=== PATIENT | male | born 2000 ===

== ENCOUNTER 2019-07-14 14:56 | Emergency (ER) | payer SELFPAY ==
--- NOTE | 2019-07-14 15:25 | EDM.PDOC ---
ED HPI GENERAL MEDICAL PROBLEM - General Chief Complaint: Lower Extremity Injury/Pain Stated Complaint: SCRAPE ON KNEE Time Seen by Provider: 07/14/19 15:25 Source of Information: Reports: Patient History Limitations: Reports: No Limitations - History of Present Illness INITIAL COMMENTS - FREE TEXT/NARRATIVE: HISTORY AND PHYSICAL: History of present illness: Patient is a 19-year-old male who presents to the emergency room with complaints of abrasion to bilateral knees. He states yesterday he had slipped and fallen onto his knees and had noticed superficial abrasions to bilateral knee caps. He is in the emergency room requesting that they be "cleaned". He denies hitting his head or having any loss of consciousness. Denies any other extremity involvement. Offers no systemic complaints. Tdap in 2018. Review of systems: As per history of present illness and below otherwise all systems reviewed and negative. Past medical history: As per history of present illness and as reviewed below otherwise noncontributory. Surgical history: As per history of present illness and as reviewed below otherwise noncontributory. Social history: See social history for further information Family history: As per history of present illness and as reviewed below otherwise noncontributory. Physical exam: General: Well-developed and well-nourished 19-year-old male. Alert and oriented. Nontoxic appearing and in no acute distress. HEENT: Atraumatic, normocephalic, pupils equal and reactive bilaterally, negative for conjunctival pallor or scleral icterus, mucous membranes moist, trachea midline. No drooling or trismus noted. No meningeal signs. No hot potato voice noted. Lungs: Clear to auscultation, breath sounds equal bilaterally, chest nontender. Heart: S1S2, regular rate and rhythm without overt murmur Abdomen: Soft, nondistended, nontender. Skin: Superficial abrasion to bilateral knees. Otherwise skin is intact, warm, dry. No lesions or rashes noted. Extremities: Ambulatory, moves all extremities per self without difficulty or deficits, negative for cords or calf pain. Neurovascular unremarkable. Neuro: Awake, alert, oriented. Cranial nerves II through XII unremarkable. Cerebellum unremarkable. Motor and sensory unremarkable throughout. Exam nonfocal. Notes: Patient reports his tetanus has been updated within the last year. Declines the need for x-rays at this time. Wound care with bacitracin provided. Supportive care measures were reviewed and discussed. Voices understanding and is agreeable to plan of care. Denies any further questions or concerns at this time. Diagnostics: Declined Therapeutics: Bacitracin Prescription: None Impression: Abrasion Plan: 1. Rest, ice, elevate the affected extremity. Please keep the abrasion clean and dry. You may apply bacitracin 2-3 times daily over the next 24 hours. 2. Tylenol and/or Ibuprofen as needed for pain management. 3. Follow up with the Orthopedic provider as we discussed. Return to the ED as needed and as discussed. Definitive disposition and diagnosis as appropriate pending reevaluation and review of above. L knee Pain Score (Numeric/FACES): 10 - Related Data Allergies Allergy/AdvReac Type Severity Reaction Status Date / Time No Known Allergies Allergy Verified 07/14/19 15:26 Home Meds: Home Meds Hepatitis B Medicine 07/14/19 [History] Review of Systems - Review of Systems Review Of Systems: ROS reveals no pertinent complaints other than HPI. ED EXAM, GENERAL - Physical Exam Exam: See Below (See dictation) Course - Vital Signs Last Recorded V/S: Last Vital Signs Temp 96.9 F 07/14/19 15:23 Pulse 60 07/14/19 15:23 Resp 16 07/14/19 15:23 BP 118/50 L 07/14/19 15:23 Pulse Ox 97 07/14/19 15:23 - Orders/Labs/Meds Orders: Active Orders 24 hr Category Date Time Status Communication Order [RC] STAT Care 07/14/19 15:32 Ordered Bacitracin [Bacitracin Oint 1 GM] Med 07/14/19 15:33 Once 1 dose TOP ONETIME ONE Departure - Departure Time of Disposition: 15:35 Disposition: Home, Self-Care 01 Clinical Impression: Abrasion of knee, bilateral - Discharge Information Instructions: Abrasion, [id number] Referrals: PCP,None [Primary Care Provider] - Forms: ED Department Discharge Additional Instructions: The following information is given to patients seen in the emergency department who are being discharged to home. This information is to outline your options for follow-up care. We provide all patients seen in our emergency department with a follow-up referral. The need for follow-up, as well as the timing and circumstances, are variable depending upon the specifics of your emergency department visit. If you don't have a primary care physician on staff, we will provide you with a referral. We always advise you to contact your personal physician following an emergency department visit to inform them of the circumstance of the visit and for follow-up with them and/or the need for any referrals to a consulting specialist. The emergency department will also refer you to a specialist when appropriate. This referral assures that you have the opportunity for follow-up care with a specialist. All of these measure are taken in an effort to provide you with optimal care, which includes your follow-up. Under all circumstances we always encourage you to contact your private physician who remains a resource for coordinating your care. When calling for follow-up care, please make the office aware that this follow-up is from your recent emergency room visit. If for any reason you are refused follow-up, please contact the [facility] Emergency Department at and asked to speak to the emergency department charge nurse. [facility] Primary [facility] [address] [place] [address] [id number] [address] [address] 1. Rest, ice, elevate the affected extremity. Please keep the abrasion clean and dry. You may apply bacitracin 2-3 times daily over the next 24 hours. 2. Tylenol and/or Ibuprofen as needed for pain management. 3. Follow up with the Orthopedic provider as we discussed. Return to the ED as needed and as discussed. - My Orders Last 24 Hours: My Active Orders 07/14/19 15:32 Communication Order [RC] STAT 07/14/19 15:33 Bacitracin [Bacitracin Oint 1 GM] 1 dose TOP ONETIME ONE - Assessment/Plan Last 24 Hours: My Active Orders 07/14/19 15:32 Communication Order [RC] STAT 07/14/19 15:33 Bacitracin [Bacitracin Oint 1 GM] 1 dose TOP ONETIME ONE
[2019-07-14] MEDS ORDERED: Bacitracin Oint 1 GM U/D Packet TOP ONE (15:33)
== END 2019-07-14 15:50 | disposition home or self-care (01) ==
LOC: MW.ED 14:56
DX: S80.212A Abrasion, left knee, initial encounter (principal); S80.211A Abrasion, right knee, initial encounter; W01.0XXA Fall on same level from slipping, tripping and stumbling without subsequent striking against object, initial encounter
CPT/HCPCS: 99282; 99283

== ENCOUNTER 2019-08-06 12:58 | Observation (INO) | payer OTHER ==
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
[2019-08-06] MEDS ORDERED: Ziprasidone Mesylate 20 MG Vial ONE (13:08)
[2019-08-06] MEDS ORDERED: LORazepam 2 MG/ML SDV ONE (13:08)
[2019-08-06] MEDS ORDERED: diphenhydrAMINE 50 MG/ML SDV ONE (13:08)
[2019-08-06] MEDS ORDERED: Water For Injection, Sterile 20 ML ONE (13:14)
[2019-08-06 13:36] LABS: BLOOD UREA NITROGEN,BUN 6 mg/dL (7.0-18.0); CARBON DIOXIDE,CO2 23.3 mmol/L (21.0-32.0); CHLORIDE,CL 106 mmol/L (98-107); GLUCOSE RANDOM 100 mg/dL (74-106); POTASSIUM,K 4.7 mmol/L (3.5-5.1); SODIUM,NA 140 mmol/L (136-148)
[2019-08-06] MEDS ORDERED: Diphtheria,Pertussis(Acell),Tetanus Vaccine 0.5 ML Syringe IM ONE (13:42)
[2019-08-06] MEDS ORDERED: Propofol 200 MG/20 ML SDV ONE (13:44)
--- NOTE | 2019-08-06 14:17 | CT ---
EXAM DATE: 08/06/19 PATIENT'S AGE: 19 CT cervical spine Technique: Multiple axial sections were obtained from above C1 inferiorly to the mid T3 level. Reconstructed sagittal and coronal images were reviewed. Comparison: No prior cervical spine imaging. Findings: Vertebral body heights and disc spaces are maintained. Vertebral bodies and posterior arches are intact. No fracture is seen. No bony central or bony neural foraminal stenosis is seen. No subluxation is seen. Rounded soft tissue densities are noted within both inferior maxillary sinuses compatible with small retention cysts. Minimal scoliosis is present. Impression: 1. Findings as noted above which are believed to be incidental. 2. Nothing acute is appreciated on CT study of the cervical spine. Diagnostic code #2 Report Signed by Proxy. [facility]ITAL[facility]
--- NOTE | 2019-08-06 14:18 | CT ---
EXAM DATE: 08/06/19 PATIENT'S AGE: [address] Technique: Multiple axial sections through the brain were obtained. Intravenous contrast was not utilized. Comparison: No prior intracranial imaging. Findings: Ventricles along with basal cisterns and sulci over the convexities are within normal limits for the patient's age. No abnormal parenchymal densities are seen. No evidence of intracranial hemorrhage. No midline shift or mass effect is seen. Bone window settings were reviewed which shows small retention cysts within the inferior maxillary sinuses. Mild mucosal thickening is noted within the right frontal sinus. No air-fluid levels are seen within the paranasal sinuses. No acute calvarial abnormality is seen. Mastoid sinuses are clear. Impression: 1. Mild sinus findings as noted above which are nonacute. 2. No acute intracranial abnormality is appreciated. Diagnostic code #2 Report Signed by Proxy. [facility]
--- NOTE | 2019-08-06 14:42 | CR ---
EXAM DATE: 08/06/19 PATIENT'S AGE: 19 Chest: Frontal view of the chest was obtained. Comparison: No prior chest imaging is available. Heart size and mediastinum are normal. Lungs are clear with no acute parenchymal change. Bony structures are grossly intact. Impression: 1. Nothing acute is seen on frontal chest x-ray. Diagnostic code #1 Report Signed by Proxy. [facility]
--- NOTE | 2019-08-06 14:43 | CR ---
EXAM DATE: 08/06/19 PATIENT'S AGE: 19 Pelvis: AP view of the pelvis was obtained. Comparison: No prior pelvis exam. Sacroiliac joints are within normal limits. Joint spaces within both hips are maintained. No acute fracture or other bony abnormality is seen. Impression: 1. Nothing acute is seen on AP pelvis study. Diagnostic code #1 Report Signed by Proxy. SIVAKUMAR
[2019-08-06] MEDS ORDERED: Ziprasidone Mesylate 20 MG Vial IM ONE (15:11)
[2019-08-06] MEDS ORDERED: diphenhydrAMINE 50 MG/ML SDV IM ONE (15:11)
[2019-08-06] MEDS ORDERED: LORazepam 2 MG/ML SDV IM ONE (15:11)
[2019-08-06] MEDS ORDERED: Water For Injection, Sterile 20 ML SDV INJECT ONE (15:11)
[2019-08-06] MEDS ORDERED: FLU Vacc QS2019-20(6MOS+)/PF 60 MCG/0.5 ML SYRINGE IM ONE (16:15)
[2019-08-06] MEDS ORDERED: Acetaminophen 325 MG Tab PO PRN (16:41)
[2019-08-06] MEDS ORDERED: LORazepam 2 MG/ML SDV IVPUSH PRN (16:42)
[2019-08-06] MEDS ORDERED: MVI, Adult with Vitamin K 10 ML, Thiamine 100 MG, Folic Acid 1 MG in Sodium Chloride 0.... IV ONE ×4 (16:43)
[2019-08-06] MEDS ORDERED: Lactated Ringers 1,000 ML IV SCH (16:45)
[2019-08-06] MEDS ORDERED: Pantoprazole 40 MG in Sodium Chloride 0.9% 10 ML IV SCH (16:45)
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
--- NOTE | 2019-08-06 21:00 | PCM.SN ---
- Free Text/Narrative Note: h/p dictated [id number]
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
== END 2019-08-06 20:45 | disposition left against medical advice (07) ==
LOC: MW.ED 12:58 → MW.MS 15:20
PROVIDERS: ADMIT Internal Medicine; ATTEND Surgery
DX: R41.82 Altered mental status, unspecified (principal); S00.83XA Contusion of other part of head, initial encounter; F10.129 Alcohol abuse with intoxication, unspecified; V48.6XXA Car passenger injured in noncollision transport accident in traffic accident, initial encounter; W22.10XA Striking against or struck by unspecified automobile airbag, initial encounter; Y90.8 Blood alcohol level of 240 mg/100 ml or more; Z53.29 Procedure and treatment not carried out because of patient's decision for other reasons
CPT/HCPCS: 36415; 70450; 71045; 72125; 72170; 80053; 80305; 80320; 81001; 85025; 90471; 90715; 93005; 96372; 99285; C9113; J1200; J2060; J3411; J3486; J7040; J7050; J7120; 99284; G0480; J0330; J2704